=== PATIENT | male | born 1960 | race Caucasian/White ===

== ENCOUNTER 2016-08-16 10:39 | Emergency (ER) | payer MEDICAID ==
[2016-07-07 13:50] VITALS: BMI 38.8
[~2016-08-16 10:39] MED LIST: ACTOS30 MG; GLUCOPHAGE1000 MG PO; GLUCOVANCE 5/501 TAB; GLYBURIDE5 M1 PO; LISINOPRIL2.5 MG; LISINOPRIL5 MG PO; PRILOSEC20 MG; TRIGLIDE160 MG; VICTOZA0.6 MG/0.1; XANAX1 MG PO; XANAX2 MG; ZOCOR20 MG
[2016-08-16 11:08] LABS: BASOPHILS 0.2 % (0.0-2.0); EOSINOPHILS 1.3 % (0-7); HEMOGLOBIN 14.2 g/dL (13.5-17.5); IMMATURE GRANULOCYTES 0.4 % (0-5); LYMPHOCYTES 27.3 % (15-50); MCH 28.9 pg (26.0-34.0); MCV 87.4 fL (80.0-100.0); MEAN PLATELET VOLUME 10.3 fL (7.4-10.4); MONOCYTES 6.4 % (2-11); NEUTROPHILS 64.4 % (40-80); PLATELET COUNT 242 10x3/uL (130-400); RBC 4.92 10x6/uL (4.20-6.10); RDW 13.5 % (11.5-14.5); WBC 12.9 10x3/uL (4.8-10.8)
[2016-08-16 11:29] LABS: ALBUMIN 3.6 g/dL (3.4-5.0); ALKALINE PHOSPHATASE 60 U/L (46-116); ALT (SGPT) 36 U/L (10-68); CALC OSMOLALITY 270 mosm/kg (275-300); CALCIUM 9.5 mg/dL (8.5-10.1); CARBON DIOXIDE 24.7 mmol/L (21.0-32.0); CHLORIDE - SERUM 98 mmol/L (98-107); CREATININE - SERUM 0.9 mg/dL (0.6-1.3); GLUCOSE 158 mg/dL (74-106); POTASSIUM - SERUM 3.9 mmol/L (3.5-5.1); PROTEIN - SERUM 7.5 g/dL (6.4-8.2); SODIUM 134 mmol/L (136-145); UREA NITROGEN 12 mg/dL (7-18); eGFR NON AFRICAN AMERICAN > 90 mL/min (90-120)
[2016-08-16 11:39] LABS: CREATINE KINASE 140 UL (21-232); TROPONIN-I < 0.017 ng/mL (0.000-0.060)
== END 2016-08-16 13:45 | disposition home or self-care (01) ==
LOC: D.ER 10:39
PROVIDERS: Emergency Medicine
DX: R07.9 Chest pain, unspecified (principal); R10.9 Unspecified abdominal pain; F41.9 Anxiety disorder, unspecified; J44.9 Chronic obstructive pulmonary disease, unspecified; E11.9 Type 2 diabetes mellitus without complications; I10 Essential (primary) hypertension; F17.200 Nicotine dependence, unspecified, uncomplicated; I45.10 Unspecified right bundle-branch block

== ENCOUNTER 2016-08-17 14:05 | Emergency (ER) | payer MEDICAID ==
[2016-07-07 13:50] VITALS: BMI 38.8
== END 2016-08-17 15:25 | disposition left against medical advice (07) ==
LOC: D.ER 14:05
DX: R10.84 Generalized abdominal pain (principal)

== ENCOUNTER 2019-10-07 12:38 | Emergency (ER) | payer OTHER ==
[~2019-10-07] VITALS: Ht 172.7 cm; Wt 126.4 kg
[2019-10-07 12:40] VITALS: Ht 172.7 cm; Wt 126.4 kg
[2019-10-07] MEDS ORDERED: NAPROSYN500 MG PO (12:42)
[2019-10-07] MEDS ORDERED: ZOLOFT100 MG PO (12:42)
[2019-10-07] MEDS ORDERED: LISINOPRIL5 MG PO (12:42)
[2019-10-07] MEDS ORDERED: ZOCOR20 MG PO (12:43)
[2019-10-07] MEDS ORDERED: ADIPEX-P37.5 M1 (12:43)
[2019-10-07] MEDS ORDERED: METHOCARBAMOL750 MG NG (12:43)
[2019-10-07] MEDS ORDERED: ZANAFLEX4 MG PO (12:43)
[2019-10-07] MEDS ORDERED: GLYBURIDE5 M1 PO (12:43)
[2019-10-07] MEDS ORDERED: JANUVIA100 MG PO (12:44)
[2019-10-07] MEDS ORDERED: PREVACID30 MG PO (12:44)
[2019-10-07 13:05] LABS: BASOPHILS 0.2 % (0-2); EOSINOPHILS 0 % (0-7); HEMATOCRIT 47.7 % (42.0-54.0); IMMATURE GRANULOCYTES 0.3 % (0-5); MCH 28.7 pg (26.0-34.0); MCHC 33.5 g/dL (31.0-37.0); MCV 85.5 fL (80.0-100.0); MEAN PLATELET VOLUME 9.9 fL (7.4-10.4); MONOCYTES 8.4 % (2-11); NEUTROPHILS 87.1 % (40-80); PLATELET COUNT 214 10x3/uL (130-400); RBC 5.58 10x6/uL (4.20-6.10); RDW 13.6 % (11.5-14.5); WBC 9.8 10x3/uL (4.8-10.8)
[2019-10-07 13:15] LABS: APTT 29.8 SECONDS (22.8-39.4); PROTIME 13.1 SECONDS (11.6-15.0)
[2019-10-07 13:16] LABS: CALC OSMOLALITY 275 mosm/kg (275-300); CALCIUM 9.1 mg/dL (8.5-10.1); CARBON DIOXIDE 25.2 mmol/L (21.0-32.0); CHLORIDE - SERUM 97 mmol/L (98-107); CREATININE - SERUM 0.7 mg/dL (0.6-1.3); POTASSIUM - SERUM 4.1 mmol/L (3.5-5.1); SODIUM 134 mmol/L (136-145); UREA NITROGEN 16 mg/dL (7-18); eGFR NON AFRICAN AMERICAN > 90 mL/min (90-120)
[2019-10-07 13:18] LABS: GLUCOSE 232 mg/dL (74-106)
[2019-10-07 13:34] LABS: ALBUMIN 3.8 g/dL (3.4-5.0); ALKALINE PHOSPHATASE 74 U/L (30-120); ALT (SGPT) 34 U/L (10-68); BILIRUBIN - TOTAL 0.31 mg/dL (0.2-1.3); CKMB 3.7 U/L (0.0-3.6); CREATINE KINASE 282 UL (21-232); MAGNESIUM - SERUM 1.8 mg/dL (1.8-2.4); PROTEIN - SERUM 8.3 g/dL (6.4-8.2); TROPONIN-I < 0.017 ng/mL (0.000-0.060)
[2019-10-07 17:19] VITALS: BP 138/84
== END 2019-10-07 17:20 | disposition home or self-care (01) ==
LOC: D.ER 12:38
PROVIDERS: Family Medicine
DX: F15.129 Other stimulant abuse with intoxication, unspecified (principal); R07.9 Chest pain, unspecified; E11.9 Type 2 diabetes mellitus without complications; I10 Essential (primary) hypertension; J44.9 Chronic obstructive pulmonary disease, unspecified; Z79.84 Long term (current) use of oral hypoglycemic drugs